=== PATIENT | female | born 1995 | race Hispanic/Latino ===

== ENCOUNTER 2021-12-03 22:18 | Emergency (ER) | payer OTHER ==
[~2021-12-03] VITALS: Ht 160 cm; Wt 184.2 kg
[2021-12-03 22:32] VITALS: BP 118/79
[2021-12-03] MEDS: IBUPROFEN 800 MG TAB ONE (22:53)
== END 2021-12-04 00:12 | disposition home or self-care (01) ==
LOC: EDH 22:18
DX: S00.33XA Contusion of nose, initial encounter (principal); S00.81XA Abrasion of other part of head, initial encounter; R04.0 Epistaxis; F32.A Depression, unspecified; Y04.8XXA Assault by other bodily force, initial encounter; Y93.89 Activity, other specified; Y92.89 Other specified places as the place of occurrence of the external cause; Y99.0 Civilian activity done for income or pay
CPT/HCPCS: 70160

== ENCOUNTER 2021-12-27 02:53 | Emergency (ER) | payer BC, OTHER ==
[~2021-12-27] VITALS: Ht 160 cm; Wt 184.2 kg
[2021-12-27 03:50] LABS: BASOPHILS % (AUTO) 0.2 % (0.0-5.0); EOSINOPHILS % (AUTO) 1.1 % (0.0-8.0); HEMATOCRIT 36.3 % (36-48); LYMPHOCYTES % (AUTO) 36.1 % (21.0-51.0); MEAN CORPUSCULAR HEMOGLOBIN 29.1 pg (27.0-33.0); MEAN CORPUSCULAR HGB CONC 33.6 g/dL (32.0-36.0); MEAN CORPUSCULAR VOLUME 86.6 fL (79-99); MONOCYTES % (AUTO) 7.4 % (3.0-13.0); NEUTROPHILS % (AUTO) 54.7 % (40.0-77.0); PLATELET COUNT (AUTO) 347 K/uL (130-400); RED BLOOD CELL COUNT(AUTO) 4.19 MIL/uL (4.00-5.50); RED CELL DISTRIBUTION WIDTH 11.9 % (11.0-15.5); WHITE BLOOD COUNT (AUTO) 8.8 K/uL (4.8-10.8)
[2021-12-27 03:51] LABS: CREATININE 0.8 mg/dL (0.5-1.5); POTASSIUM 3.5 mmol/L (3.5-5.1)
[2021-12-27 03:57] LABS: BILIRUBIN,TOTAL 0.2 mg/dL (0.2-1.0); TOTAL PROTEIN, SERUM 7.9 g/dL (6.0-8.3)
[2021-12-27 03:59] LABS: BILIRUBIN,URINE Negative (NEGATIVE); COLOR,URINE Yellow (YELLOW); GLUCOSE, URINE (UA) Negative (NEGATIVE); KETONES,URINE Negative (NEGATIVE); LEUKOCYTE ESTERASE ,URINE Negative (NEGATIVE); NITRATE,URINE Negative (NEGATIVE); OCCULT BLOOD,URINE Negative (NEGATIVE); PH,URINE 5.5 (5.0-8.0); PROTEIN,URINE Negative (NEGATIVE)
[2021-12-27 04:06] LABS: APPEARANCE,URINE CLEAR (CLEAR)
[2021-12-27 04:07] LABS: HCG,QUAL RESULT NEGATIVE (NEGATIVE)
[2021-12-27] MEDS ORDERED: ONDANSETRON 4MG INJ IVP ONE (04:30)
[2021-12-27] MEDS ORDERED: ONDA4TAB10 PO (05:51)
[2021-12-27 06:15] VITALS: BP 132/71
== END 2021-12-27 06:18 | disposition home or self-care (01) ==
LOC: EDH 02:53
DX: K52.9 Noninfective gastroenteritis and colitis, unspecified (principal); F32.A Depression, unspecified
CPT/HCPCS: 36415; 80053; 81003; 81025; 82270; 83690; 85025; 87046; 96374; 99284; J2405